=== PATIENT | male | born 1950 | race Asian ===

== ENCOUNTER 2017-11-27 14:58 | Outpatient (CLI) | payer BC, MEDICARE ==
--- NOTE | 2017-11-27 15:29 | RAD ---
PA AND LATERAL CHEST: Date: 11/27/17 INDICATION: Shortness of breath. COMPARISON: Prior exam of 12/14/16. FINDINGS: There is moderate to large right pleural effusion. Left lung is clear. There is cardiomegaly with pul monary vascular congestion. There is multilevel spondylosis of the thoracic spine. IMPRESSION: 1. Worsening moderate to prominent right pleural effusion. 2. Cardiomegaly and pulmonary vascular congestion. POS: [facility]
== END 2017-11-27 14:59 | disposition home or self-care (01) ==
LOC: SCSRAD 14:58
PROVIDERS: ATTEND Family Medicine
DX: J90 Pleural effusion, not elsewhere classified (principal); J81.1 Chronic pulmonary edema; I51.7 Cardiomegaly; R06.02 Shortness of breath
CPT/HCPCS: 71046

== ENCOUNTER 2017-12-25 11:30 | Outpatient (CLI) | payer MEDICARE, BC ==
--- NOTE | 2017-12-25 13:39 | RAD ---
PA AND LATERAL CHEST RADIOGRAPH: Date: 12-25-17 History: Right sided pleural effusion. Patient had thoracentesis last week. Patient has continued cou gh and shortness of breath. Comparison: 11-27-17 FINDINGS: There is a moderately large right pleural effusion which is smaller in size compared to the prior colt dy. However, there is now evidence of a right sided pneumothorax. The degree of pneumothorax is diffi cult to determine, but is least occupies 30% of the volume of the right hemithorax. The left lung is clear. The right cardiac border is obscured. Pulmonary vasculature is within normal limits. There is passive atelectasis involving the right lung. No other interval change. IMPRESSION: 1. Moderately large right pleural effusion which has decreased related to recent procedure, but there is now evidence of a right sided pneumothorax which occupies at least 30% of the volume of the right hemithorax. 2. Above findings discussed with Dr. Gracia on 12-25-17 at 1149 hours. POS: [facility]
== END 2017-12-25 11:31 | disposition home or self-care (01) ==
LOC: SCSRAD 11:30
PROVIDERS: ATTEND Family Medicine
DX: J90 Pleural effusion, not elsewhere classified (principal); J93.9 Pneumothorax, unspecified
CPT/HCPCS: 71046

== ENCOUNTER 2018-07-03 15:17 | Outpatient (CLI) | payer BC, MEDICARE ==
--- NOTE | 2018-07-03 17:29 | ULT ---
RENAL SONOGRAM: 07/03/18 HISTORY: Let flank pain. COMPARISON: None available. FINDINGS: The right kidney measures 10.4 cm x 4.6 cm with the left kidney measuring 10.3 cm x 4.4 cm. FINDINGS: The right kidney demonstrates normal sonographic appearance without evidence of a renal mass, renal c alculus, or hydronephrosis. The left kidney demonstrates no hydronephrosis or renal mass, but there are shadowing echogenic foci seen within the left kidney. The majority of which appear to be cortically based and may represent co rtically based calcifications. However, a few of the calculi in the mid portion of the left kidney could potentially be related to n onobstructing left renal calculi. Largest echogenic foci measures 0.9 cm in the mid portion of the le ft kidney. The urinary bladder is partially distended with urinary bladder volume of 158 mL. The incompletely di stended urinary bladder does demonstrate a normal sonographic appearance. There is a small amount of intraperitoneal free fluid seen adjacent to the inferior aspect of the rig ht hepatic lobe. IMPRESSION: 1. Nonobstructing calculi within the left kidney. These calcifications appear cortically based a lthough one of the calcifications could potentially represent a nonobstructing calculus. 2. No evidence of hydronephrosis bilaterally. The right kidney has a normal sonographic appearan ce. 3. Tiny amount of ascites. 4. Comparison is made with a prior hepatic ultrasound examination on 08/31/16 which did partially image the left kidney, and no definite shadowing echogenic focus was seen in the left kidney on the prior exam. CT scan abdomen may be helpful for further evaluation. POS: [facility]
== END 2018-07-03 15:18 | disposition home or self-care (01) ==
LOC: ULT 15:17
PROVIDERS: ATTEND Family Medicine
DX: R10.9 Unspecified abdominal pain (principal); N20.0 Calculus of kidney; R18.8 Other ascites; N28.89 Other specified disorders of kidney and ureter
CPT/HCPCS: 76770

== ENCOUNTER 2019-04-10 11:21 | Outpatient (CLI) | payer BC, MEDICARE ==
[~2019-04-10 11:21] MED LIST: Sodium Chloride 0.9% 15 ML NEB ONE
--- NOTE | 2019-04-10 14:08 | HP ---
HISTORY OF PRESENT ILLNESS: Mr. Cindy Stevens is a very pleasant 68-year-old gentleman, accompanied by his spouse, who presents to the [facility] for evaluation of an ulceration of the plantar surface of the right lateral foot. The patient's states that the ulceration began as a blister over the right lateral foot approximately 13 days ago. The patient's states that the blister developed in to an ulceration, for which the patient has been seen by Dr. Garcia and Dr. Cao. The patient's states that the patient was referred by Dr. Garcia to the emergency department. The patient apparently has an appointment at [facility]. This appointment was made for the patient after being seen in the emergency department. The patient was referred by Dr. Cao to the Wound Center for further evaluation and treatment. The patient's states that she has treated the ulceration with triple antibiotic ointment. She states she has also treated the ulceration with Bactroban. She states she has been cleansing the ulceration with hydrogen peroxide. The patient has been treated with several different antibiotics including Augmentin, ciprofloxacin, and cefdinir. The patient's has been applying the secondary dressing to the ulceration after treatment with a topical antibiotic preparation. PAST MEDICAL HISTORY: 1. History of hypertension. 2. Congestive heart failure. 3. End-stage renal disease. 4. Atrial fibrillation. 5. TIA in 2007. 6. Diabetes mellitus. PAST SURGICAL HISTORY: Dialysis access procedures. MEDICATIONS: 1. Insulin. 2. Lasix. 3. Proscar. 4. Atenolol. 5. Vitamins at the time of dialysis. ALLERGIES: ADHESIVE. SOCIAL HISTORY: Social history is negative for tobacco or EtOH use. FAMILY HISTORY: Family history is significant for diabetes mellitus. The patient's mother, father, and multiple siblings were all diagnosed with diabetes mellitus. Family history is also significant for coronary artery disease. The patient's father was diagnosed with coronary artery disease. PHYSICAL EXAMINATION: VITAL SIGNS: Temperature 97.8, pulse 115, respirations 20, blood pressure 132/79. Accu-Chek 85. GENERAL: A 68-year-old gentleman, sitting on table in examination room, in no acute distress. HEENT: Normocephalic, atraumatic. NECK: No nuchal rigidity. CHEST: Clear to auscultation. CV: Irregular. ABDOMEN: Soft. EXTREMITIES: An ulceration of the right lateral foot over the plantar surface of the foot is present. The dimensions of the ulceration are approximately 2.5 x 2.8 cm. Eschar covers almost the entire wound bed. Granulation tissue is visible at the periphery of the wound. No purulent drainage is associated with the wound. No erythema of the skin surrounding the wound is present. No maceration of the skin of the periwound is noted. A dorsalis pedis pulse is easily palpable on the right. No significant edema of the right foot is present on exam today. ASSESSMENT AND PLAN: 1. Ulceration of right lateral foot over the plantar surface of the foot as described above. Dressing changes of Medihoney, 4x4s, and Kerlix will be initiated today. These dressing changes are to be performed on a daily basis after cleansing and irrigation with the assistance of the patient's . The patient is to continue p.o. antibiotics as previously prescribed. The patient has an appointment with Podiatry at [facility] later today. I will see the patient again in 2 weeks. The patient and his understand and are in agreement with the preceding treatment plan. The importance of offloading has been discussed with both the patient and his . The patient has also been recommended to obtain diabetic shoes with inserts to further facilitate offloading. The patient's states that the patient has undergone percutaneous revascularization of both lower extremities previously. 2. Diabetes mellitus. The patient's Accu-Chek in clinic today is 85. The patient has been told that for optimal wound healing, his blood glucoses should remain below 150. 3. Transient ischemic attack in 2007. 4. Atrial fibrillation. 5. Hypertension. 6. Congestive heart failure. 7. End-stage renal disease. Job ID: [id number]
== END 2019-04-10 11:22 | disposition home or self-care (01) ==
LOC: WCC 11:21
PROVIDERS: ATTEND Family Medicine
DX: E11.621 Type 2 diabetes mellitus with foot ulcer (principal); L97.519 Non-pressure chronic ulcer of other part of right foot with unspecified severity; I48.91 Unspecified atrial fibrillation; I13.2 Hypertensive heart and chronic kidney disease with heart failure and with stage 5 chronic kidney disease, or end stage renal disease; I50.9 Heart failure, unspecified; N18.6 End stage renal disease; Z86.73 Personal history of transient ischemic attack (TIA), and cerebral infarction without residual deficits; E11.22 Type 2 diabetes mellitus with diabetic chronic kidney disease
CPT/HCPCS: A4218

== ENCOUNTER 2019-04-24 11:39 | Outpatient (CLI) | payer BC, MEDICARE ==
--- NOTE | 2019-04-24 09:45 | PRG ---
DATE OF SERVICE: 04/24/2019 HISTORY: Mr. Cindy Stevens is a very pleasant 68-year-old gentleman, accompanied by his spouse, who presents to the Wound Center for evaluation of an ulceration of the plantar surface of the right lateral foot. The patient's previously stated that the ulceration began as a blister over the right lateral foot approximately 13 days prior to the patient's initial presentation to the Wound Center. The patient's stated that the blister developed into an ulceration for which the patient was seen by Dr. Garcia and Dr. Cao. The patient's stated that the patient was referred by Dr. Garcia to the emergency department. The patient was also seen at [facility] after an appointment was made for the patient, subsequent to being seen in the emergency department. The patient was referred by Dr. Cao to the Wound Center for further evaluation and treatment. The patient's stated that she had treated the ulceration with triple antibiotic ointment. She stated that she had also treated the ulceration with Bactroban. She also reported cleansing the ulceration with hydrogen peroxide. The patient had been treated with several different antibiotics prior to being seen in the Wound Center, including Augmentin, ciprofloxacin, and cefdinir. The patient's had been applying a secondary dressing to the ulceration after treatment with a topical antibiotic preparation. After being seen in the Wound Center, the patient was placed on dressing changes of Medihoney, 4 x 4's, and Kerlix. The patient has been receiving these dressing changes on a daily basis after cleansing and irrigation again with the assistance of the patient's . The patient has also been taking p.o. antibiotics as previously prescribed. The patient is utilizing a wheelchair for optimal offloading. PHYSICAL EXAMINATION: VITAL SIGNS: Temperature 97.9, pulse 79, respirations 19, and blood pressure 129/60. EXTREMITIES: An ulceration of the right lateral foot over the plantar surface of the foot is present, which measures approximately 2.5 x 1.8 cm. The dimensions of the wound at the time of the patient's last visit were approximately 2.5 x 2.8 cm. Granulation tissue is present within the wound margins. Necrotic and nonviable tissue present within the wound margins was debrided with an excisional full-thickness debridement with the use of scissors. A small amount of purulent drainage is associated with the wound. No erythema of the skin surrounding the wound is present. No maceration of the skin of the periwound is noted. A dorsalis pedis pulse is easily palpable on the right. No significant edema of the right foot is present on exam today. LABORATORY DATA: Accu-Chek 330. ASSESSMENT AND PLAN: 1. Ulceration of right lateral foot over the plantar surface of the foot as described above. Dressing changes of Medihoney, 4 x 4's, and Kerlix will be continued on a daily basis after cleansing and irrigation with the assistance of the patient's . I will see the patient again in 1 week. The patient will continue to utilize a wheelchair for optimal offloading. The patient will also be seen by the freezing room worker for fitting with diabetic shoes with inserts. The patient's previously stated that the patient has undergone percutaneous revascularization of both lower extremities previously. 2. Diabetes mellitus. The patient's Accu-Chek in clinic today is 330. The patient has been reminded that for optimal wound healing, his blood glucoses should remain below 150. 3. Transient ischemic attack in 2007. 4. Atrial fibrillation. 5. Hypertension. 6. Congestive heart failure. 7. End-stage renal disease. Job ID: [id number]
[2019-04-24] MEDS ORDERED: Sodium Chloride 0.9% 15 ML NEB ONE (18:00)
== END 2019-04-24 11:40 | disposition home or self-care (01) ==
LOC: WCC 11:39
PROVIDERS: ATTEND Family Medicine
DX: E11.621 Type 2 diabetes mellitus with foot ulcer (principal); L97.519 Non-pressure chronic ulcer of other part of right foot with unspecified severity; I48.91 Unspecified atrial fibrillation; I13.2 Hypertensive heart and chronic kidney disease with heart failure and with stage 5 chronic kidney disease, or end stage renal disease; N18.6 End stage renal disease; I50.9 Heart failure, unspecified; Z86.73 Personal history of transient ischemic attack (TIA), and cerebral infarction without residual deficits
CPT/HCPCS: 11042; A4218

== ENCOUNTER 2019-04-30 10:30 | Outpatient (CLI) | payer BC, MEDICARE ==
--- NOTE | 2019-04-30 12:07 | PRG ---
DATE OF SERVICE: 04/30/2019 HISTORY: Mr. Cindy Stevens is a very pleasant 68-year-old gentleman, accompanied by his spouse, who presents to the Wound Center for evaluation of an ulceration of the plantar surface of the right lateral foot. The patient's previously stated that the ulceration began as a blister over the right lateral foot approximately 13 days prior to the patient's initial presentation to the Wound Center. The patient's stated that the blister developed into an ulceration, for which the patient was seen by Dr. Garcia and Dr. Cao. The patient's stated that the patient was referred by Dr. Garcia to the emergency department. The patient was also seen at [facility] after an appointment was made for the patient subsequent to being seen in the emergency department. The patient was referred by Dr. Cao to the Wound Center for further evaluation and treatment. The patient's stated that she had treated the ulceration with triple antibiotic ointment. She stated that she had also treated the ulceration with Bactroban. She also reported cleansing the ulceration with hydrogen peroxide. The patient had been treated with several different antibiotics prior to being seen in the Wound Center, including Augmentin, ciprofloxacin, and cefdinir. The patient's had been applying a secondary dressing to the ulceration after treatment with a topical antibiotic preparation. After being seen in the Wound Center, the patient was placed on dressing changes of Medihoney, 4x4s, and Kerlix. The patient has been receiving these dressing changes on a daily basis after cleansing and irrigation again with the assistance of the patient's . The patient has also been taking p.o. antibiotics as previously prescribed. The patient is utilizing a wheelchair for optimal offloading. PHYSICAL EXAMINATION: VITAL SIGNS: Temperature 97.6, pulse 84, respirations 19, and blood pressure 125/72. Accu-Chek 200. EXTREMITIES: An ulceration of the right lateral foot over the plantar surface of the foot is present, which measures approximately 1.9 x 1.8 cm. The dimensions of the wound at the time of the patient's last visit were approximately 2.5 x 1.8 cm. Granulation tissue is present within the wound margins. Necrotic and nonviable tissue present within the wound margins was debrided with an excisional full-thickness debridement with the use of a curette. No purulent drainage is associated with the wound. No erythema of the skin surrounding the wound is present. No maceration of the skin of the periwound is noted. No significant edema of the right foot is present on exam today. ASSESSMENT AND PLAN: 1. Ulceration of right lateral foot over the plantar surface of the foot as described above. Dressing changes of Medihoney, 4x4s, and Kerlix will be continued on a daily basis after cleansing and irrigation with the assistance of the patient's . I will see the patient again in 1 week. The patient will continue to utilize a wheelchair for optimal offloading. The patient has also been seen by the computer security coordinator today for fitting with diabetic shoes with inserts. The patient's previously stated that the patient has undergone percutaneous revascularization of both lower extremities previously. 2. Diabetes mellitus. The patient's Accu-Chek in clinic today is 200. The patient has been reminded that for optimal wound healing, his blood glucoses should remain below 150. 3. Transient ischemic attack in 2007. 4. Atrial fibrillation. 5. Hypertension. 6. Congestive heart failure. 7. End-stage renal disease. Job ID: [id number]
== END 2019-04-30 10:31 | disposition home or self-care (01) ==
LOC: WCC 10:30
PROVIDERS: ATTEND Family Medicine
DX: E11.621 Type 2 diabetes mellitus with foot ulcer (principal); L97.419 Non-pressure chronic ulcer of right heel and midfoot with unspecified severity; G45.9 Transient cerebral ischemic attack, unspecified; I13.2 Hypertensive heart and chronic kidney disease with heart failure and with stage 5 chronic kidney disease, or end stage renal disease; I50.9 Heart failure, unspecified; N18.6 End stage renal disease; I48.91 Unspecified atrial fibrillation
CPT/HCPCS: 11042

== ENCOUNTER 2019-05-07 13:03 | Outpatient (CLI) | payer BC, MEDICARE ==
--- NOTE | 2019-05-07 11:54 | PRG ---
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 The patient's previously stated that the ulceration began as a blister over the right lateral foot approximately 13 days prior to the patient's initial presentation to the Wound Center. The patient's stated that the blister developed into an ulceration, for which the patient was seen by Dr. Garcia and Dr. Cao. The patient's stated that the patient was referred by Dr. Garcia to the emergency department. The patient was also seen at [facility] after an appointment was made for the patient subsequent to being seen in the emergency department. The patient was referred by Dr. Cao to the Wound Center for further evaluation and treatment. The patient's stated that she had treated the ulceration with triple antibiotic ointment. She stated that she had also treated the ulceration with Bactroban. She also reported cleansing the ulceration with hydrogen peroxide. The patient had been treated with several different antibiotics prior to being seen in the Wound Center including Augmentin, ciprofloxacin, and cefdinir. The patient's had been applying a secondary dressing to the ulceration after treatment with a topical antibiotic preparation. After being seen in the Wound Center, the patient was placed on dressing changes of Medihoney, 4x4s, and Kerlix. The patient has been receiving these dressing changes on a daily basis after cleansing and irrigation with the assistance of his . The patient has also been taking p.o. antibiotics as previously prescribed. The patient is also utilizing a wheelchair for optimal offloading. PHYSICAL EXAMINATION: VITAL SIGNS: Temperature 97.7, pulse 117, respirations 18, and blood pressure 117/61. Accu-Chek 100. EXTREMITIES: An ulceration of the right lateral foot over the plantar surface of the foot is present, which measures approximately 1.5 x 1.8 cm. The dimensions of the wound at the time of the patient's last visit were approximately 1.9 x 1.8 cm. Granulation tissue is present within the wound margins. Necrotic and nonviable tissue present within the wound margins was debrided with an excisional full-thickness debridement with the use of a curette. No purulent drainage is associated with the wound. No erythema of the skin surrounding the wound is present. No maceration of the skin of the periwound is noted. No significant edema of the right foot is present on exam today. Desiccated tissue at the periphery of the wound was also excised with the use of scissors. ASSESSMENT AND PLAN: 1. Ulceration of right lateral foot over the plantar surface of the foot as described above. Dressing changes of Medihoney, 4x4s, and Kerlix will be continued on a daily basis after cleansing and irrigation with the assistance of the patient's . I will see the patient again in 1 week. The patient will continue to utilize a wheelchair for optimal offloading. The patient has also been seen by the silverware assembler for fitting with diabetic shoes with inserts. The patient's previously stated that the patient had undergone percutaneous revascularization of both lower extremities in the past. 2. Diabetes mellitus. The patient's Accu-Chek in clinic today is 100. The patient has been reminded that for optimal wound healing his blood glucoses should remain below 150. 3. Transient ischemic attack in 2007. 4. Atrial fibrillation. 5. Hypertension. 6. Congestive heart failure. 7. End-stage renal disease. Job ID: [id number]
[2019-05-07] MEDS ORDERED: Sodium Chloride 0.9% 15 ML NEB ONE (18:00)
[2019-05-07] MEDS ORDERED: Lidocaine 2% PF 100 mg/5 ml Syringe ONE (18:00)
== END 2019-05-07 13:04 | disposition home or self-care (01) ==
LOC: WCC 13:03
PROVIDERS: ATTEND Family Medicine
DX: E11.621 Type 2 diabetes mellitus with foot ulcer (principal); L97.519 Non-pressure chronic ulcer of other part of right foot with unspecified severity; I48.91 Unspecified atrial fibrillation; I13.2 Hypertensive heart and chronic kidney disease with heart failure and with stage 5 chronic kidney disease, or end stage renal disease; E11.22 Type 2 diabetes mellitus with diabetic chronic kidney disease; N18.6 End stage renal disease; I50.9 Heart failure, unspecified; Z86.73 Personal history of transient ischemic attack (TIA), and cerebral infarction without residual deficits
CPT/HCPCS: A4218; J2001

== ENCOUNTER 2019-05-15 08:20 | Outpatient (CLI) | payer BC, MEDICARE ==
--- NOTE | 2019-05-15 09:57 | PRG ---
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 The patient's previously stated that the ulceration began as a blister over the right lateral foot approximately 13 days prior to the patient's initial presentation to the Wound Center. The patient's stated that the blister developed into an ulceration, for which the patient was seen by Dr. Gacria and Dr. Cao. The patient's stated that the patient was referred by Dr. Garcia to the emergency department. The patient was also seen at [facility] after an appointment was made for the patient subsequent to being seen in the emergency department. The patient was referred by Dr. Cao to the wound center for further evaluation and treatment. The patient's stated that she had treated the ulceration with triple antibiotic ointment. She stated that she had also treated the ulceration with Bactroban. She also reported cleansing the ulceration with hydrogen peroxide. The patient had been treated with several different antibiotics prior to being seen in the Wound Center, including Augmentin, ciprofloxacin, and cefdinir. The patient's had been applying a secondary dressing to the ulceration after treatment with a topical antibiotic preparation. After being seen in the Wound Center, the patient was placed on dressing changes of Medihoney, 4x4s, and Kerlix. The patient has been receiving these dressing changes on a daily basis after cleansing and irrigation. The patient has also taken p.o. antibiotics as previously prescribed. The patient is also utilizing a wheelchair for optimal offloading. PHYSICAL EXAMINATION: VITAL SIGNS: Temperature 97.6, pulse 69, respirations 16, and blood pressure 128/68. Accu-Chek 147. EXTREMITIES: An ulceration of the right lateral foot over the plantar surface of the foot is present, which measures approximately 1.4 x 1.6 cm. The dimensions of the wound at the time of the patient's last visit were approximately 1.5 x 1.8 cm. Granulation tissue is present within the wound margins. No purulent drainage is associated with the wound. No erythema of the skin surrounding the wound is present. No maceration of the skin of the periwound is noted. No significant edema of the right foot is present on exam today. ASSESSMENT AND PLAN: 1. Ulceration of right lateral foot over the plantar surface of the foot as described above. Dressing changes of Medihoney, 4x4s, and Kerlix will be continued on a daily basis after cleansing and irrigation with the assistance of the patient's . I will see the patient again in 1 week. The patient will continue to utilize the wheelchair for optimal offloading. The patient has also been seen by the mannequin molder for fitting with diabetic shoes with inserts. The patient's previously stated that the patient had undergone percutaneous revascularization of both lower extremities in the past. 2. Diabetes mellitus. The patient's Accu-Chek in clinic today is 147. The patient has been reminded that for optimal wound healing, his blood glucoses should remain below 150. 3. Transient ischemic attack in 2007. 4. Atrial fibrillation. 5. Hypertension. 6. Congestive heart failure. 7. End-stage renal disease. Job ID: [id number]
[2019-05-15] MEDS ORDERED: Sodium Chloride 0.9% 15 ML NEB ONE (16:24)
== END 2019-05-15 08:21 | disposition home or self-care (01) ==
LOC: WCC 08:20
PROVIDERS: ATTEND Family Medicine
DX: E11.621 Type 2 diabetes mellitus with foot ulcer (principal); L97.519 Non-pressure chronic ulcer of other part of right foot with unspecified severity; I48.91 Unspecified atrial fibrillation; E11.22 Type 2 diabetes mellitus with diabetic chronic kidney disease; I13.2 Hypertensive heart and chronic kidney disease with heart failure and with stage 5 chronic kidney disease, or end stage renal disease; N18.6 End stage renal disease; I50.9 Heart failure, unspecified; Z86.73 Personal history of transient ischemic attack (TIA), and cerebral infarction without residual deficits
CPT/HCPCS: 97602; A4218

== ENCOUNTER 2019-05-22 13:17 | Outpatient (CLI) | payer BC, MEDICARE ==
--- NOTE | 2019-05-22 09:23 | PRG ---
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 The patient's previously stated that the ulceration began as a blister over the right lateral foot approximately 13 days prior to the patient's initial presentation to the Wound Center. The patient's stated that the blister developed into an ulceration, for which the patient was seen by Dr. Garcia and Dr. Cao. The patient's stated that the patient was referred by Dr. Garcia to the emergency department. The patient was also seen at [facility] after an appointment was made for the patient subsequent to being seen in the emergency department. The patient was referred by Dr. Cao to the Wound Center for further evaluation and treatment. The patient's stated that she had treated the ulceration with triple antibiotic ointment. She stated that she had also treated the ulceration with Bactroban. She also reported cleansing the ulceration with hydrogen peroxide. The patient had been treated with several different antibiotics prior to being seen in the Wound Center, including Augmentin, ciprofloxacin, and cefdinir. The patient's had been applying a secondary dressing to the ulceration after treatment with a topical antibiotic preparation. After being seen in the Wound Center, the patient was placed on dressing changes of Medihoney, 4x4s, and Kerlix. The patient has been receiving these dressing changes on a daily basis after cleansing and irrigation. The patient has also taken p.o. antibiotics as previously prescribed. The patient is also utilizing a wheelchair for optimal offloading. PHYSICAL EXAMINATION: VITAL SIGNS: Temperature 97.7, pulse 72, respirations 18, blood pressure 125/62. Accu-Chek 97. EXTREMITIES: An ulceration of the right lateral foot over the plantar surface of the foot is present, which measures approximately 1.4 x 1.1 cm. The dimensions of the wound at the time of the patient's last visit were approximately 1.4 x 1.6 cm. Granulation tissue is present within the wound margins. No purulent drainage is associated with the wound. No erythema of the skin surrounding the wound is present. No maceration of the skin of the periwound is noted. No significant edema of the right foot is present on exam today. ASSESSMENT AND PLAN: 1. Ulceration of right lateral foot over the plantar surface of the foot as described above. Dressing changes of Medihoney, 4x4s, and Kerlix will be continued on a daily basis after cleansing and irrigation with the assistance of the patient's . I will see the patient again in 1 week. The patient will continue to utilize a wheelchair for optimal offloading. The patient has also been seen by the evaporator operator molasses for fitting with diabetic shoes with inserts. The patient's previously stated that the patient had undergone percutaneous revascularization of both lower extremities in the past. Because of erythema of the toes of the left foot, I have recommended to the patient and his that he obtain an appointment with the physician performing the percutaneous revascularization of the left lower extremity for further evaluation and possible treatment. 2. Diabetes mellitus. The patient's Accu-Chek in clinic today is 97. The patient has been reminded that for optimal wound healing, his blood glucoses should remain below 150. 3. Transient ischemic attack in 2007. 4. Atrial fibrillation. 5. Hypertension. 6. Congestive heart failure. 7. End-stage renal disease. Job ID: [id number]
== END 2019-05-22 13:18 | disposition home or self-care (01) ==
LOC: WCC 13:17
PROVIDERS: ATTEND Family Medicine
DX: E11.621 Type 2 diabetes mellitus with foot ulcer (principal); L97.519 Non-pressure chronic ulcer of other part of right foot with unspecified severity; I48.91 Unspecified atrial fibrillation; I13.2 Hypertensive heart and chronic kidney disease with heart failure and with stage 5 chronic kidney disease, or end stage renal disease; I50.9 Heart failure, unspecified; E11.22 Type 2 diabetes mellitus with diabetic chronic kidney disease; N18.6 End stage renal disease; Z86.73 Personal history of transient ischemic attack (TIA), and cerebral infarction without residual deficits
CPT/HCPCS: A4218

== ENCOUNTER 2019-05-28 13:15 | Outpatient (CLI) | payer BC, MEDICARE ==
--- NOTE | 2019-05-28 09:26 | PRG ---
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 The patient's previously stated that the ulceration began as a blister over the right lateral foot approximately 13 days prior to the patient's initial presentation to the Wound Center. The patient's stated that the blister developed into an ulceration for which the patient was seen by Dr. Garcia and Dr. Cao. The patient's stated that the patient was referred by Dr. Garcia to the emergency department. The patient was also seen at [facility] after an appointment was made for the patient subsequent to being seen in the emergency department. The patient was referred by Dr. Cao to the Wound Center for further evaluation and treatment. The patient's stated that she had treated the ulceration with triple antibiotic ointment. She stated that she had also treated the ulceration with Bactroban. She also reported cleansing the ulceration with hydrogen peroxide. The patient has been treated with several different antibiotics prior to being seen in the Wound Center, including Augmentin, ciprofloxacin, and cefdinir. The patient's had been applying a secondary dressing to the ulceration after treatment with a topical antibiotic preparation. After being seen in the Wound Center, the patient was placed on dressing changes of Medihoney, 4x4s, and Kerlix. The patient has been receiving these dressing changes on a daily basis after cleansing and irrigation. The patient has also taken p.o. antibiotics as previously prescribed. The patient is also utilizing a wheelchair for optimal offloading. PHYSICAL EXAMINATION: VITAL SIGNS: Temperature 97.7, pulse 80, respirations 18, blood pressure 120/56. Accu-Chek 84. EXTREMITIES: An ulceration of the right lateral foot over the plantar surface of the foot is present which measures approximately 0.9 x 1.0 cm. The dimensions of the wound at the time of the patient's last visit were approximately 1.4 x 1.1 cm. Granulation tissue is present within the wound margins. No purulent drainage is associated with the wound. Nonviable tissue present within the wound margins was debrided with an excisional full-thickness debridement with the use of a curette. Callus and desiccated tissue at the periphery of the wound were eliminated with the use of scissors. No erythema of the skin surrounding the wound is present. No maceration of the skin of the periwound is noted. A dorsalis pedis pulse is palpable on the right. A dorsalis pedis pulse is not palpable on the left. No significant edema of the right foot is present on exam today. ASSESSMENT AND PLAN: 1. Ulceration of right lateral foot over the plantar surface of the foot as described above. Dressing changes of Medihoney, 4x4s, and Kerlix will be continued on a daily basis after cleansing and irrigation with the assistance of the patient's . I will see the patient again in 1 week. The patient will continue to utilize a wheelchair for optimal offloading. The patient has also been seen by the component prep operator for fitting with diabetic shoes with inserts. The patient's previously stated that the patient had undergone percutaneous revascularization of both lower extremities in the past because of erythema of the toes of the left foot. Arrangements will be made if possible for the patient to be seen by the physician performing the percutaneous revascularization of the left lower extremity for further evaluation and possible treatment. 2. Diabetes mellitus. The patient's Accu-Chek in clinic today is 84. The patient has been reminded that for optimal wound healing his blood glucoses should remain below 150. 3. Transient ischemic attack in 2007. 4. Atrial fibrillation. 5. Hypertension. 6. Congestive heart failure. 7. End-stage renal disease. Job ID: [id number]
[~2019-05-28 13:15] MED LIST changes: +Lidocaine 2% PF 100 mg/5 ml Syringe ONE
== END 2019-05-28 13:16 | disposition home or self-care (01) ==
LOC: WCC 13:15
PROVIDERS: ATTEND Family Medicine
DX: E11.621 Type 2 diabetes mellitus with foot ulcer (principal); L97.419 Non-pressure chronic ulcer of right heel and midfoot with unspecified severity; I13.2 Hypertensive heart and chronic kidney disease with heart failure and with stage 5 chronic kidney disease, or end stage renal disease; E11.22 Type 2 diabetes mellitus with diabetic chronic kidney disease; N18.6 End stage renal disease; I50.9 Heart failure, unspecified; I48.91 Unspecified atrial fibrillation; G45.9 Transient cerebral ischemic attack, unspecified
CPT/HCPCS: 11042; A4218; J2001

== ENCOUNTER 2019-06-04 11:21 | Outpatient (CLI) | payer BC, MEDICARE ==
--- NOTE | 2019-06-04 09:33 | PRG ---
DATE OF SERVICE: 06/04/2019 HISTORY: Mr. Cindy Stevens is a very pleasant 69-year-old gentleman, accompanied by his spouse, who presents to the Wound Center for evaluation of an ulceration of the plantar surface of the right lateral foot. The patient's previously stated that the ulceration began as a blister over the right lateral foot approximately 13 days prior to the patient's initial presentation to the Wound Center. The patient's stated that the blister developed into an ulceration, for which the patient was seen by Dr. Garcia and Dr. Cao. The patient's stated that the patient was referred by Dr. Garcia to the emergency department. The patient was also seen at [facility] after an appointment was made for the patient subsequent to being seen in the emergency department. The patient was referred by Dr. Cao to the wound center for further evaluation and treatment. The patient's stated that she had treated the ulceration with triple antibiotic ointment. She stated that she had also treated the ulceration with Bactroban. She also reported cleansing the ulceration with hydrogen peroxide. The patient has been treated with several different antibiotics prior to being seen in the Wound Center, including Augmentin, ciprofloxacin, and cefdinir. The patient's had been applying a secondary dressing to the ulceration after treatment with a topical antibiotic preparation. After being seen in the Wound Center, the patient was placed on dressing changes of Medihoney, 4x4s, and Kerlix. The patient has been receiving these dressing changes on a daily basis after cleansing and irrigation. The patient has also taken p.o. antibiotics as previously prescribed. The patient is also utilizing a wheelchair for optimal offloading. OBJECTIVE: VITAL SIGNS: Temperature 97.7, pulse 105, respirations 19, and blood pressure 130/79. Accu-Chek 155. EXTREMITIES: An ulceration of the right lateral foot over the plantar surface of the foot is present which measures approximately 0.7 x 1.1 cm. The dimensions of the wound at the time of the patient's last visit were approximately 0.9 x 1.0 cm. Granulation tissue is present within the wound margins. Nonviable tissue present within the wound margins was debrided with an excisional full-thickness debridement with the use of a curette. Callus and desiccated tissue at the periphery of the wound were eliminated with the use of scissors. No purulent drainage is associated with the wound. No erythema of the skin surrounding the wound is present. No maceration of the skin of the periwound is noted. A dorsalis pedis pulse is palpable on the right. No significant edema of the right foot is present on exam today. ASSESSMENT AND PLAN: 1. Ulceration of right lateral foot over the plantar surface of the foot as described above. Dressing changes of Medihoney, 4x4s, and Kerlix will be continued on a daily basis after cleansing and irrigation with the assistance of the patient's . I will see the patient again in 2 weeks. The patient will continue to utilize a wheelchair for optimal offloading. The patient has also been seen by the counter attendant for fitting with diabetic shoes with inserts. The patient's previously stated that the patient had undergone percutaneous revascularization of both lower extremities in the past. Arrangements have been made for the patient to be seen by the physician performing the percutaneous revascularization of the left lower extremity for further evaluation and possible treatment because of erythema of the toes of the left foot noted at the time of the patient's last visit. 2. Diabetes mellitus. The patient's Accu-Chek in clinic today is 155. The patient has been reminded that for optimal wound healing, his blood glucoses should remain below 150. 3. Transient ischemic attack in 2007. 4. Atrial fibrillation. 5. Hypertension. 6. Congestive heart failure. 7. End-stage renal disease. Job ID: [id number]
[~2019-06-04 11:21] MED LIST changes: -Lidocaine 2% PF 100 mg/5 ml Syringe ONE; +Lidocaine 2% PF 5 ML VIAL ONE
== END 2019-06-04 11:22 | disposition home or self-care (01) ==
LOC: WCC 11:21
PROVIDERS: ATTEND Family Medicine
DX: E11.621 Type 2 diabetes mellitus with foot ulcer (principal); L97.519 Non-pressure chronic ulcer of other part of right foot with unspecified severity; I48.91 Unspecified atrial fibrillation; E11.22 Type 2 diabetes mellitus with diabetic chronic kidney disease; I13.2 Hypertensive heart and chronic kidney disease with heart failure and with stage 5 chronic kidney disease, or end stage renal disease; I50.9 Heart failure, unspecified; N18.6 End stage renal disease; Z86.73 Personal history of transient ischemic attack (TIA), and cerebral infarction without residual deficits
CPT/HCPCS: 11042; A4218; J2001

== ENCOUNTER 2019-06-18 08:00 | Outpatient (CLI) | payer BC, MEDICARE ==
--- NOTE | 2019-06-18 11:41 | PRG ---
DATE OF SERVICE: 06/18/2019 SUBJECTIVE: Cindy Stevens is a very pleasant 69-year-old gentleman, who presents to the wound center for evaluation of an ulceration of the plantar surface of the right lateral foot. The patient has been receiving dressing changes of Medihoney for the wound of his right foot on a daily basis after cleansing and irrigation with the assistance of his . The patient's states that the patient has an appointment with Interventional Radiology later this month for evaluation of left lower extremity arterial insufficiency. The patient will be seen by [facility]. The patient is also followed by [facility], specifically Dr. Aviles. PHYSICAL EXAMINATION: VITAL SIGNS: Temperature 97.9, pulse 71, respirations 20, blood pressure 134/58. Accu-Chek 200. EXTREMITIES: An ulceration of the plantar surface of the right lateral foot is present, which measures approximately 0.8 x 0.3 cm. Granulation tissue is present within the wound margins. Necrotic and nonviable tissue present within the wound margins was debrided with an excisional full-thickness debridement with the use of a curette. Callus and desiccated tissue at the periphery of the wound were excised with the use of scissors. No purulent drainage is associated with the wound. No erythema of the skin surrounding the wound is present. No maceration of the skin of the periwound is noted. A dorsalis pedis pulse is palpable on the right. No significant edema of the right foot is present on exam today. ASSESSMENT AND PLAN: 1. Ulceration of plantar surface of right lateral foot. Dressing changes of Medihoney will be continued on a daily basis after cleansing and irrigation with the assistance of the patient's . I will see the patient again in 1 week. At this time, the patient will also be seen by the clip loading machine adjuster. 2. Diabetes mellitus. The patient's Accu-Chek in clinic today is 200. The patient has been told that for optimal wound healing his blood glucoses should remain below 150. 3. End-stage renal disease. Job ID: [id number]
[2019-06-18] MEDS ORDERED: Sodium Chloride 0.9% 15 ML NEB ONE (17:01)
== END 2019-06-18 08:01 | disposition home or self-care (01) ==
LOC: WCC 08:00
PROVIDERS: ATTEND Family Medicine
DX: E11.621 Type 2 diabetes mellitus with foot ulcer (principal); L97.419 Non-pressure chronic ulcer of right heel and midfoot with unspecified severity; E11.22 Type 2 diabetes mellitus with diabetic chronic kidney disease; N18.6 End stage renal disease
CPT/HCPCS: A4218

== ENCOUNTER 2019-06-25 15:46 | Outpatient (CLI) | payer BC, MEDICARE ==
--- NOTE | 2019-06-25 11:18 | PRG ---
DATE OF SERVICE: 06/25/2019 HISTORY: Cindy Stevens is a very pleasant 69-year-old gentleman, who presents to the wound center for evaluation of an ulceration of the plantar surface of the right lateral foot. The patient has been receiving dressing changes of Medihoney for the wound of his right foot on a daily basis after cleansing and irrigation with the assistance of his . Again, the patient's states that the patient has an appointment with Interventional Radiology later this month for evaluation of left lower extremity arterial insufficiency. The patient will be seen by [facility]. The patient is also followed by [facility], specifically Dr. Aviles. PHYSICAL EXAMINATION: VITAL SIGNS: Temperature 97.8, pulse 86, respirations 16, and blood pressure 191/65. Accu-Chek 214. EXTREMITIES: An ulceration of the plantar surface of the right lateral foot is present, which measures approximately 0.4 x 0.2 cm. Granulation tissue is present within the wound margins. Necrotic and nonviable tissue present within the wound margins were debrided with an excisional full-thickness debridement with the use of a curette. Callus desiccated tissue and undermining at the periphery of the wound were eliminated with the use of scissors. Postdebridement measurements were approximately 0.2 x 0.3 cm. No purulent drainage is associated with the wound. No erythema of the skin surrounding the wound is present. No maceration of the skin of the periwound is noted. A dorsalis pedis pulse is palpable on the right. No significant edema of the right foot is present on exam today. ASSESSMENT AND PLAN: 1. Ulceration of plantar surface of right lateral foot. Dressing changes of Medihoney will be continued on a daily basis after cleansing and irrigation with the assistance of the patient's . I will see the patient again in 1 week. Today, the patient has been seen by the adding machine mechanic and the patient has received his diabetic shoes with inserts. 2. Diabetes mellitus. The patient's Accu-Chek in clinic today is 214. The patient has been reminded that for optimal wound healing his blood glucoses should remain below 150. 3. End-stage renal disease. Job ID: [id number]
[~2019-06-25 15:46] MED LIST changes: +Lidocaine 2% PF 100 mg/5 ml Syringe ONE; -Lidocaine 2% PF 5 ML VIAL ONE
== END 2019-06-25 15:47 | disposition home or self-care (01) ==
LOC: WCC 15:46
PROVIDERS: ATTEND Family Medicine
DX: E11.621 Type 2 diabetes mellitus with foot ulcer (principal); L97.519 Non-pressure chronic ulcer of other part of right foot with unspecified severity; E11.22 Type 2 diabetes mellitus with diabetic chronic kidney disease; N18.6 End stage renal disease
CPT/HCPCS: A4218; J2001

== ENCOUNTER 2019-07-02 11:56 | Outpatient (CLI) | payer BC, MEDICARE ==
[2019-07-02] MEDS ORDERED: Sodium Chloride 0.9% 15 ML NEB ONE (17:00)
[2019-07-02] MEDS ORDERED: Lidocaine 2% PF 100 mg/5 ml Syringe ONE (17:00)
--- NOTE | 2019-07-02 17:52 | PRG ---
DATE OF SERVICE: 07/02/2019 HISTORY: Cindy Stevens is a very pleasant 69-year-old gentleman, who presents to the Wound Center for evaluation of an ulceration of the plantar surface of the right lateral foot. The patient has been receiving dressing changes of Medihoney for the wound of his right foot on a daily basis after cleansing and irrigation with the assistance of his . The patient is also followed by [facility], specifically Dr. Aviles. PHYSICAL EXAMINATION: VITAL SIGNS: Temperature 97.9, pulse 77, respirations 16, and blood pressure 121/77. Accu-Chek 123. EXTREMITIES: The ulceration of the plantar surface of the right lateral foot has healed completely. Callus and desiccated tissue associated with the heel ulceration was debrided with an excisional partial thickness debridement with the use of scissors. ASSESSMENT AND PLAN: 1. Ulceration of plantar surface of right lateral foot. As stated above, the ulceration has healed completely. The patient will be discharged from clinic today. The patient states that he will schedule a followup visit with Dr. Aviles. The patient has been seen by the histological illustrator and has received diabetic shoes with inserts. 2. Diabetes mellitus. The patient's Accu-Chek in clinic today is 123. The patient has been reminded that for optimal wound healing, his blood glucoses should remain below 150. 3. End-stage renal disease. 4. Transient ischemic attack in 2007. 5. Atrial fibrillation. 6. Hypertension. 7. Congestive heart failure. Job ID: [id number]
== END 2019-07-02 11:57 | disposition home or self-care (01) ==
LOC: WCC 11:56
PROVIDERS: ATTEND Family Medicine
DX: E11.621 Type 2 diabetes mellitus with foot ulcer (principal); L97.519 Non-pressure chronic ulcer of other part of right foot with unspecified severity; E11.22 Type 2 diabetes mellitus with diabetic chronic kidney disease; I13.2 Hypertensive heart and chronic kidney disease with heart failure and with stage 5 chronic kidney disease, or end stage renal disease; N18.6 End stage renal disease; I50.9 Heart failure, unspecified; I48.91 Unspecified atrial fibrillation; Z86.73 Personal history of transient ischemic attack (TIA), and cerebral infarction without residual deficits
CPT/HCPCS: A4218; J2001